=== PATIENT | female | born 1940 | race Two or more races ===

== ENCOUNTER 2019-04-21 13:08 | Inpatient (IN) | payer OTHER ==
[~2019-04-21] VITALS: Ht 165.1 cm; Wt 57.6 kg
[~2019-04-21 13:08] MED LIST: SYNTHROID88 MCG; VYTORIN 10-20 M1 TAB
[2019-04-21] MEDS ORDERED: TOPROL XL25 M1 PO (13:50)
[2019-04-23] MEDS ORDERED: LEVO-T75 MCG PO (08:14)
[2019-04-24] MEDS ORDERED: ASA-EC81 MG PO (15:07)
[2019-04-24] MEDS ORDERED: LIPITOR40 MG PO (15:07)
[2019-04-24] MEDS ORDERED: CLOPIDOGREL BIS75 MG PO (15:07)
[2019-04-24] MEDS ORDERED: TOPROL XL25 M1 PO (15:07)
[2019-04-24] MEDS ORDERED: AMLODIPINE BESYL5 MG PO (15:07)
== END 2019-04-24 18:09 | disposition home or self-care (01) | DRG 66 ==
LOC: ER 13:08 → MEDJ 22:30
PROVIDERS: ADMIT Internal Medicine
PROC: BW28ZZZ Computerized Tomography (CT Scan) of Head (ICD-10-PCS; principal; 2019-04-21)
PROC: B246ZZZ Ultrasonography of Right and Left Heart (ICD-10-PCS; 2019-04-21)
PROC: B030ZZZ Magnetic Resonance Imaging (MRI) of Brain (ICD-10-PCS; 2019-04-21)
PROC: B348ZZZ Ultrasonography of Bilateral Internal Carotid Arteries (ICD-10-PCS; 2019-04-21)
PROC: B345ZZZ Ultrasonography of Bilateral Common Carotid Arteries (ICD-10-PCS; 2019-04-21)
PROC: 4A12X4Z Monitoring of Cardiac Electrical Activity, External Approach (ICD-10-PCS; 2019-04-22)
DX: I63.59 Cerebral infarction due to unspecified occlusion or stenosis of other cerebral artery (principal); G31.89 Other specified degenerative diseases of nervous system; I11.9 Hypertensive heart disease without heart failure; I08.1 Rheumatic disorders of both mitral and tricuspid valves; R29.710 NIHSS score 10
CPT/HCPCS: 70551

== ENCOUNTER 2020-01-07 08:41 | Outpatient (CLI) | payer OTHER ==
[~2020-01-07 08:41] MED LIST changes: +AMLODIPINE BESYL5 MG PO; +ASA-EC81 MG PO; +CLOPIDOGREL BIS75 MG PO; +LEVO-T75 MCG PO; +LIPITOR40 MG PO; +TOPROL XL25 M1 PO
== END 2020-01-07 08:55 | disposition home or self-care (01) ==
LOC: TOM 08:41
PROVIDERS: ATTEND Internal Medicine Gastroenterology
DX: K44.9 Diaphragmatic hernia without obstruction or gangrene (principal); K57.30 Diverticulosis of large intestine without perforation or abscess without bleeding; K29.70 Gastritis, unspecified, without bleeding; K64.8 Other hemorrhoids; K31.89 Other diseases of stomach and duodenum; K20.8 Other esophagitis; K22.8 Other specified diseases of esophagus; Z86.010 Personal history of colon polyps; N39.0 Urinary tract infection, site not specified; D50.8 Other iron deficiency anemias

== ENCOUNTER 2020-03-19 08:35 | Outpatient (CLI) | payer OTHER | END 2020-03-19 08:39 | disposition home or self-care (01) | LOC: NUCLEAR 08:35 | PROVIDERS: ATTEND Internal Medicine Gastroenterology | DX: K57.30 Diverticulosis of large intestine without perforation or abscess without bleeding (principal); K29.70 Gastritis, unspecified, without bleeding; K31.89 Other diseases of stomach and duodenum; K31.84 Gastroparesis | CPT/HCPCS: 78264; A9541 ==

== ENCOUNTER 2020-06-17 19:24 | Emergency (ER) | payer OTHER ==
[~2020-06-17] VITALS: Ht 165.1 cm; Wt 55.3 kg
== END 2020-06-17 23:56 | disposition home or self-care (01) ==
LOC: ER 19:24
DX: R42 Dizziness and giddiness (principal); M54.2 Cervicalgia; M62.838 Other muscle spasm

== ENCOUNTER 2020-10-10 14:55 | Outpatient (CLI) | payer OTHER | END 2020-10-10 15:10 | disposition home or self-care (01) | LOC: TOM 14:55 | PROVIDERS: ATTEND Internal Medicine Pulmonary Disease | DX: I63.89 Other cerebral infarction (principal) ==

== ENCOUNTER 2022-10-19 11:08 | Emergency (ER) | payer OTHER ==
[~2022-10-19] VITALS: Ht 165.1 cm; Wt 51.7 kg
[2022-10-19] MEDS ORDERED: FAMOTIDINE20 MG PO (11:44)
[2022-10-19] MEDS ORDERED: SINGULAIR4 M1 PO (11:45)
[2022-10-19] MEDS ORDERED: PANTOPRAZOLE SO40 MG PO (11:45)
== END 2022-10-19 16:01 | disposition home or self-care (01) ==
LOC: ER 11:08
DX: R42 Dizziness and giddiness (principal); E86.0 Dehydration; I10 Essential (primary) hypertension; G47.39 Other sleep apnea; I87.2 Venous insufficiency (chronic) (peripheral)

== ENCOUNTER 2022-11-05 11:00 | Outpatient (CLI) | payer OTHER ==
[~2022-11-05 11:00] MED LIST changes: +FAMOTIDINE20 MG PO; +PANTOPRAZOLE SO40 MG PO; +SINGULAIR4 M1 PO
== END 2022-11-05 11:12 | disposition home or self-care (01) ==
LOC: SONOGRAMA 11:00
PROVIDERS: ATTEND Internal Medicine Gastroenterology
DX: K21.9 Gastro-esophageal reflux disease without esophagitis (principal); R13.10 Dysphagia, unspecified; K31.7 Polyp of stomach and duodenum; K31.84 Gastroparesis; K29.70 Gastritis, unspecified, without bleeding; K64.0 First degree hemorrhoids; K57.30 Diverticulosis of large intestine without perforation or abscess without bleeding; K30 Functional dyspepsia

== ENCOUNTER 2022-11-09 07:52 | Outpatient (CLI) | payer OTHER | END 2022-11-09 08:00 | disposition home or self-care (01) | LOC: TOM 07:52 | PROVIDERS: ATTEND Internal Medicine Gastroenterology | DX: K57.30 Diverticulosis of large intestine without perforation or abscess without bleeding (principal); K64.0 First degree hemorrhoids; K29.70 Gastritis, unspecified, without bleeding; K31.84 Gastroparesis; K31.7 Polyp of stomach and duodenum ==

== ENCOUNTER 2022-11-29 09:38 | Outpatient (CLI) | payer OTHER | END 2022-11-29 09:48 | disposition home or self-care (01) | LOC: RX STUDY 09:38 | PROVIDERS: ATTEND Internal Medicine Gastroenterology | DX: K57.30 Diverticulosis of large intestine without perforation or abscess without bleeding (principal); K64.0 First degree hemorrhoids; K29.70 Gastritis, unspecified, without bleeding; K31.84 Gastroparesis; K31.7 Polyp of stomach and duodenum ==

== ENCOUNTER 2022-12-29 09:46 | Inpatient (IN) | payer OTHER ==
[~2022-12-29] VITALS: Ht 165.1 cm; Wt 49.9 kg
[2023-01-06] MEDS ORDERED: INTEGRA PLUS C1 EACH PO (16:04)
[2023-01-06] MEDS ORDERED: AMLODIPINE BESYL5 MG PO (16:04)
[2023-01-06] MEDS ORDERED: LEVOTHYROXINE75 MCG PO (16:05)
[2023-01-06] MEDS ORDERED: LASIX20 MG PO (16:05)
== END 2023-01-06 17:46 | disposition home or self-care (01) | DRG 181 ==
LOC: ER 09:46 → MEDJ 22:01
PROVIDERS: ADMIT Internal Medicine; ATTEND Internal Medicine
PROC: 0W993ZX Drainage of Right Pleural Cavity, Percutaneous Approach, Diagnostic (ICD-10-PCS; principal; 2022-12-29)
PROC: BW24YZZ Computerized Tomography (CT Scan) of Chest and Abdomen using Other Contrast (ICD-10-PCS; 2022-12-29)
PROC: BW21YZZ Computerized Tomography (CT Scan) of Abdomen and Pelvis using Other Contrast (ICD-10-PCS; 2022-12-31)
PROC: BW28YZZ Computerized Tomography (CT Scan) of Head using Other Contrast (ICD-10-PCS; 2022-12-31)
DX: C34.11 Malignant neoplasm of upper lobe, right bronchus or lung (principal); J91.0 Malignant pleural effusion; N39.0 Urinary tract infection, site not specified; E03.9 Hypothyroidism, unspecified; I10 Essential (primary) hypertension; Z20.822 Contact with and (suspected) exposure to COVID-19